=== PATIENT | female | born 1995 | race Caucasian/White ===

== ENCOUNTER 2016-04-17 20:04 | Emergency (ER) | payer OTHER ==
[2016-04-17] MEDS ORDERED: Ondansetron ODT TAB* 4 MG SL PRN (22:37)
[2016-04-17] MEDS ORDERED: Al Hydrox/Mg Hydrox/Simet LIQ* 30 ML UDC PO ONE (22:37)
[2016-04-17] MEDS ORDERED: Ondansetron ODT TAB* 4 MG ONE (22:46)
[2016-04-17 22:51] VITALS: BP 110/75
--- NOTE | 2016-04-18 01:09 | ED ---
Laceration/Wound HPI - HPI Summary HPI Summary: Patient is right hand dominant who presents to ED with a left ring finger laceration to the superficial layer of the DIP joint. Patient is able to clench fist, denies numbness or tingling, denies color changes. Notes some temperature changes, but involves all 5 fingers of left hand. 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 Patient is extremely anxious on arrival. - History of Current Complaint Stated Complaint: LACERATION Time Seen by Provider: 04/17/16 21:19 Hx Obtained From: Patient Mechanism of Injury: Sharp/Blunt Trauma Onset/Duration: Sudden Onset Aggravating: Movement Alleviating: Nothing Timing: Constant Onset Severity: Mild Current Severity: Mild Pain Intensity: 3 Pain Scale Used: 0-10 Numeric Associated Signs & Symptoms: Pain - Allergy/Home Medications Allergies/Adverse Reactions: Allergies Allergy/AdvReac Type Severity Reaction Status Date / Time Penicillins Allergy Hives Verified 04/17/16 20:09 PMH/Surg Hx/FS Hx/Imm Hx Previously Healthy: Yes - Immunization History Date of Tetanus Vaccine: 2011 Infectious Disease History: No Infectious Disease History: Reports: 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 - rugby - Social History Occupation: Student Lives: Alone Alcohol Use: Occasionally Hx Substance Use: Yes Substance Use Type: Reports: Marijuana Hx Tobacco Use: No Smoking Status (MU): Never Smoked Tobacco Review of Systems Constitutional: Negative Cardiovascular: Negative Respiratory: Negative Gastrointestinal: Negative Positive: no symptoms reported, see HPI Musculoskeletal: Negative Skin: Negative Neurological: Other - 1cm laceration over palmar PIP joint of left ring finger without tendon involvement Psychological: Normal All Other Systems Reviewed And Are Negative: Yes Physical Exam Triage Information Reviewed: Yes Vital Signs On Initial Exam: Initial Vitals Temp Pulse Resp BP Pulse Ox 98.5 F 98 16 122/95 100 04/17/16 20:05 04/17/16 20:05 04/17/16 20:05 04/17/16 20:05 04/17/16 20:05 Vital Signs Reviewed: Yes Appearance: Positive: Well-Appearing, Well-Nourished Skin: Positive: Warm, Skin Color Reflects Adequate Perfusion, Other - 1cm laceration over palmar PIP joint of left ring finger without tendon involvement Eyes: Positive: Normal, CARLITOS ENT: Positive: Normal ENT inspection Neck: Positive: Supple, No Lymphadenopathy Respiratory/Lung Sounds: Positive: Clear to Auscultation, Breath Sounds Present Cardiovascular: Positive: Normal, RRR Abdomen Description: Positive: Other: - pain in abd after arrival to hospital d/ t panic attack Musculoskeletal: Positive: Normal, Strength/ROM Intact Neurological: Positive: Normal, Sensory/Motor Intact Psychiatric: Positive: Anxious - [place] Coma Scale Coma Scale Total: 15 Procedures - Laceration/Wound Repair 1 Location: upper extremity Description: Linear Anesthesia: 2.0%, Epi Betadine Prep?: No Laceration/Wound Explored: clean Closure: Single Layer - 4 sutures placed Suture Type: Nylon Diagnostics - Vital Signs Vital Signs Temp Pulse Resp BP Pulse Ox 04/17/16 22:49 98.3 F 54 16 110/75 98 04/17/16 20:05 98.5 F 98 16 122/95 100 - Laboratory Lab Statement: Any lab studies that have been ordered have been reviewed, and results considered in the medical decision making process. Laceration Repair Course/Dx - Course Course Of Treatment: cleaned wound. lidocaine cream applied per patient request. 1% lido without epi. 4 sutures placed. Patient near synopized during procedure. water and juice given. Patient feeling better. bandaid and splint applied. suture removal in 6 days. zofran and maalox given to patient for discomfort d/t anxiety of procedure. Patient stable on discharge. - Differential Dx Differental Diagnoses: Joint Infection, Laceration, Tendon Laceration - Clinical Impression Provider Diagnoses: Laceration of ring finger Discharge - Discharge Plan Condition: Stable Disposition: HOME Patient Education Materials: Care For Your Stitches (ED), Stitches Removal (ED) Referrals: [facility] JESSE Worthy [Primary Care Provider] - Additional Instructions: If you develop signs of infection such as fever, drainage from the area, warmth or redness, come back to ED. Images - Images Hands: 1 - laceration 1cm superificial linear not involving tendon.
== END 2016-04-17 22:53 | disposition home or self-care (01) ==
LOC: ED 20:04
DX: S61.215A Laceration without foreign body of left ring finger without damage to nail, initial encounter (principal); W45.8XXA Other foreign body or object entering through skin, initial encounter; Y93.9 Activity, unspecified; Y92.9 Unspecified place or not applicable
CPT/HCPCS: 99282; A9270-GY

== ENCOUNTER 2017-04-24 12:03 | Emergency (ER) | payer OTHER ==
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
[2017-04-24 13:45] VITALS: BP 104/68
== END 2017-04-24 13:44 | disposition home or self-care (01) ==
LOC: ED 12:03
DX: S09.90XA Unspecified injury of head, initial encounter (principal); V43.52XA Car driver injured in collision with other type car in traffic accident, initial encounter; Y93.89 Activity, other specified; Y92.410 Unspecified street and highway as the place of occurrence of the external cause; M25.562 Pain in left knee; M25.561 Pain in right knee; R51 Headache; R42 Dizziness and giddiness; Z88.0 Allergy status to penicillin
CPT/HCPCS: 70450; 99282